=== PATIENT | female | born 1945 | race Caucasian/White ===

== ENCOUNTER 2017-02-12 09:34 | Day surgery (SDC) | payer MEDICARE, BC ==
[~2017-02-12 09:34] MED LIST: LIDOCAINE HCL 1% MPF SOL ONE; PROPOFOL 500 MG/50 ML EMU IV ONE
[2017-02-12 11:14] VITALS: BP 146/67; PULSE 66; RESP 18; TEMP 97.6; O2SAT 98
== END 2017-02-12 11:30 | disposition home or self-care (01) | DRG 951 ==
LOC: SURG 09:34
PROVIDERS: ATTEND Surgery
DX: Z12.11 Encounter for screening for malignant neoplasm of colon (principal); D12.3 Benign neoplasm of transverse colon; Z80.0 Family history of malignant neoplasm of digestive organs; Z86.010 Personal history of colon polyps
CPT/HCPCS: J2001; J2704